=== PATIENT | female | born 2005 | race Caucasian/White ===

== ENCOUNTER 2024-03-19 05:57 | Day surgery (SDC) | payer OTHER ==
[2024-03-18 11:28] VITALS: BMI 34.8
[2024-03-19] MEDS ORDERED: fentaNYL PF 100 MCG/2 ML SYRINGE ONE (06:27)
[2024-03-19] MEDS ORDERED: PROPOFOL 20 ML ONE (06:27)
[2024-03-19] MEDS ORDERED: Lidocaine 1% PF 5 ML VIAL ONE (06:27)
[2024-03-19] MEDS ORDERED: Bacitracin Zinc Ointment 30 gm TUBE ONE (06:33)
[2024-03-19] MEDS ORDERED: Bupivacaine PF 0.5% 30 ML VIAL ONE (06:34)
[2024-03-19] MEDS ORDERED: CEFAZOLIN 2 GM VIAL ONE (07:05)
[2024-03-19] MEDS ORDERED: Ondansetron PF 4 MG/2 ML Vial ONE (07:06)
[2024-03-19] MEDS ORDERED: Dexamethasone 20 MG/5 ML VIAL ONE (07:06)
[2024-03-19] MEDS ORDERED: Midazolam HCl 2 mg/2 ml Vial ONE (07:06)
[2024-03-19] MEDS ORDERED: EPINEPHrine 1 MG/ML VIAL ONE (07:40)
[2024-03-19] MEDS ORDERED: fentaNYL 50 mcg/mL 1 mL Vial ONE ×2 (09:07→09:18)
[2024-03-19] MEDS ORDERED: Ketorolac Tromethamine 30 MG (1 mL) VIAL ONE (09:08)
[2024-03-19] MEDS ORDERED: HYDROcodone/Acetaminophen 5/325 mg Tablet ONE (10:31)
== END 2024-03-19 11:00 | disposition home or self-care (01) ==
LOC: SDC 05:57
PROVIDERS: ATTEND Orthopaedic Surgery Hand Surgery
PROC: 0LB54ZZ Excision of Right Lower Arm and Wrist Tendon, Percutaneous Endoscopic Approach (ICD-10-PCS; principal; 2024-03-19)
PROC: 0RBN4ZZ Excision of Right Wrist Joint, Percutaneous Endoscopic Approach (ICD-10-PCS; principal; 2024-03-19)
PROC: 0RQN4ZZ Repair Right Wrist Joint, Percutaneous Endoscopic Approach (ICD-10-PCS; principal; 2024-03-19)
DX: M67.431 Ganglion, right wrist (principal); S63.591A Other specified sprain of right wrist, initial encounter; M25.331 Other instability, right wrist; M65.831 Other synovitis and tenosynovitis, right forearm; Z85.828 Personal history of other malignant neoplasm of skin; Z88.8 Allergy status to other drugs, medicaments and biological substances; Z79.899 Other long term (current) drug therapy; X58.XXXA Exposure to other specified factors, initial encounter
CPT/HCPCS: 88304; A6223; J0171; J0665; J1100; J1885; J2250; J2405; J2704; J3010